=== PATIENT | female | born 1980 | race Caucasian/White ===

== ENCOUNTER 2019-05-19 09:54 | Emergency (ER) | payer OTHER, MEDICAID, SELFPAY ==
[2019-05-19 10:03] VITALS: BP 121/97; PULSE 94; RESP 12; TEMP 36.9; O2SAT 100
--- NOTE | 2019-05-19 10:25 | ED_ITS ---
HPI - Allergic Reaction General Chief complaint: Allergic Reaction Stated complaint: Bee Stings Time Seen by Provider: 05/19/19 10:03 Source: patient Mode of arrival: ambulatory Limitations: no limitations History of Present Illness HPI narrative: 38-year-old female here for evaluation of multiple bee stings. Patient states yesterday she was stung by multiple bees after walking over there Nest. Today she is here because she cannot stand the itching any longer. She has been trying Benadryl and topical steroid and anti-itch creams without much improvement. No problems breathing. No nausea vomiting. Has never had a reaction like this before. Related Data Home Medications Medication Instructions Recorded Confirmed lamotrigine [Lamictal] 150 mg PO BID #0 08/28/12 Previous Rx's Medication Instructions Recorded hydroxyzine HCl 25 mg PO TID-QID PRN #14 tab 05/19/19 prednisone 40 mg PO DAILY 2 Days #4 tab 05/19/19 Allergies Allergy/AdvReac Type Severity Reaction Status Date / Time SULFA (sulfonamide) Allergy Unknown Uncoded 12/25/17 12:03 Review of Systems Constitutional Constitutional: Denies fever(s) and Denies headache(s) ENT Ears, Nose, Mouth, and Throat: Denies headache(s) Cardiovascular Cardiovascular: Denies chest pain and Denies dyspnea Respiratory Respiratory: Denies dyspnea Gastrointestinal Gastrointestinal: Denies abdominal pain, Denies nausea and Denies vomiting Genitourinary Genitourinary: Denies dysuria Musculoskeletal Musculoskeletal: Denies myalgias and Denies arthralgias Integumentary/Breasts Skin/Breast: Reports pruritus, Reports lesions and Reports sores Comments: Bee stings Neurologic Neurologic: Denies behavioral changes and Denies headache(s) Psychiatric Psychiatric: Denies behavioral changes Hematologic/Lymphatic Hematologic/Lymphatic: Denies easy bleeding and Denies easy bruising [facility] Medical History Patient denies medical problems (Acute) Social History Smoking Status: Current every day smoker Social History Smoking Status: Current every day smoker Exam Initial Vital Signs Initial Vital Signs: Vital Signs Temperature 98.4 F 05/19/19 10:03 Pulse Rate 94 H 05/19/19 10:03 Respiratory Rate 12 05/19/19 10:03 Blood Pressure 121/97 H 05/19/19 10:03 Pulse Oximetry 100 05/19/19 10:03 Const General: cooperative Nutritional Appearance: average body habitus and well nourished Orientation: alert and awake HENCA Head: normal to inspection and normocephalic Resp Effort & Inspection: normal respiratory effort Auscultation: clear to auscultation bilaterally Cardio Rate: regular rate Rhythm: regular rhythm GI Inspection: non-distended Palpation: soft and No tender Skin Other: Multiple lesions on extremities both upper and lower consistent with bee stings with small surrounding erythema Neuro General: alert and awake Cognition: normal cognition Speech: speech normal Extrem General: normal to inspection and capillary refill normal Psych Appearance: grossly normal and well kempt Course Orders Ordered: Discontinued Medications Prednisone (Deltasone) 40 mg PO NOW ONE Stop: 05/19/19 10:27 Last Admin: 05/19/19 10:30 Dose: 40 mg Documented by: SCANAPO Vital Signs Vital signs: Vital Signs - 8 hr 05/19/19 10:03 Temperature 98.4 F Pulse Rate 94 H Respiratory Rate 12 Blood Pressure 121/97 H Pulse Oximetry 100 MDM - Allergic Reaction MDM Narrative Medical decision making narrative: Patient the fevers or chills. History and physical is not consistent with anaphylaxis. The redness over the areas are also not consistent with cellulitis. She will continue the Benadryl. Will send home with a short course of steroids. She was given her 1st dose here in the ER. She was given return precautions and follow-up instructions. She expressed understanding and agreement with plan. Discharge Plan Departure Patient Disposition: Home Clinical Impression: Bee sting reaction Qualifiers: Encounter type: initial encounter Injury intent: accidental or unintentional Qualified Code(s): T63.441A - Toxic effect of venom of bees, accidental (unintentional), initial encounter Instructions: DI for Insect Bites and Stings Activity Restrictions/Additional Instructions: You were given your 1st dose of prednisone here in the emergency department. Your 2nd dose will be tomorrow. You can continue the Benadryl. Take the hydroxyzine as needed as well. Continue the topical anti-itch creams. Return to the emergency department for any worsening symptoms Prescriptions: New prednisone 20 mg tablet 40 mg PO DAILY 2 Days Qty: 4 RF: 0 hydroxyzine HCl 25 mg tablet 25 mg PO TID-QID PRN (Reason: itching) Qty: 14 RF: 0 No Action lamotrigine [Lamictal] 150 MG tablet 150 mg PO BID Qty: 0 RF: 0
[2019-05-19] MEDS: predniSONE 20 MG TABLET 40 MG PO (10:30)
== END 2019-05-19 10:48 | disposition home or self-care (01) ==
PROVIDERS: Emergency Provider Emergency Medicine
DX: T63.441A Toxic effect of venom of bees, accidental (unintentional), initial encounter (principal)
CPT/HCPCS: 99282; 99283

== ENCOUNTER 2020-02-23 22:06 | Emergency (ER) | payer OTHER, MEDICAID, SELFPAY ==
[2020-02-23 22:14] VITALS: BP 122/76; PULSE 81; RESP 17; TEMP 36.5; O2SAT 100; BMI 19.8
[2020-02-23] MEDS: DOXYCYCLINE HYCLATE 100 MG TABLET PO (22:16)
[2020-02-23] MEDS: HYDROCODONE/ACET 5/325 PREPACK 1 BOTTLE MISC (22:37)
[2020-02-23] MEDS: LIDO 1%/SOD BICARB 8.4% (10ML) 10 ML SYRINGE INJ (22:38)
--- NOTE | 2020-02-23 22:43 | ED_ITS ---
HPI - Skin/Abscess/Foreign Bdy General Chief complaint: Skin/Abscess/Foreign Body Stated complaint: cyst under rt arm Time Seen by Provider: 02/23/20 22:06 Source: patient Mode of arrival: Family Vehicle Limitations: no limitations History of Present Illness HPI narrative: 39F daily smoker with noncontributory medical history presents with significant other and the chief complaint of a painful, swollen, red, boil under her right arm for the past few days. It started after shaving her armpits and has gradually worsened. She denies systemic findings such as fever, chills, nausea, or vomiting. She was seen by her PCP a few days ago and told to use warm compresses, which she has done, but her symptoms have worsened. She has no spontaneous drainage, but she did squeeze it at home. Her pain is worse with motion and improves with rest. MD complaint: abscess/boil Onset (ago): day(s) Tetanus up to date: yes Location: RUE Severity: moderate Quality: aching Pain Consistency: constant Relieving factors: immobilization Exacerbating factors: palpation and movement Context: none Associated symptoms: denies other symptoms Treatments prior to arrival: none Related Data Home Medications Medication Instructions Recorded Confirmed lamotrigine [Lamictal] 150 mg PO BID #0 08/28/12 Previous Rx's Medication Instructions Recorded hydroxyzine HCl 25 mg PO TID-QID PRN #14 tab 05/19/19 doxycycline hyclate 100 mg PO BID #20 tab 02/23/20 Allergies Allergy/AdvReac Type Severity Reaction Status Date / Time SULFA (sulfonamide) Allergy Unknown Uncoded 12/25/17 12:03 Review of Systems Constitutional Constitutional: Denies chills, Denies fatigue, Denies fever(s), Denies frequent falls, Denies lethargy and Denies weakness Eyes Eyes: Denies change in vision, Denies eye discharge, Denies irritation and Denies loss of vision ENT Ears, Nose, Mouth, and Throat: Denies change in voice, Denies dizziness, Denies neck pain, Denies sore throat and Denies throat swelling Cardiovascular Cardiovascular: Denies chest pain, Denies irregular heart rhythm, Denies lightheadedness, Denies palpitations, Denies dyspnea, Denies dyspnea on exertion and Denies orthopnea Respiratory Respiratory: Denies cough, Denies dyspnea, Denies dyspnea on exertion and Denies wheezing Gastrointestinal Gastrointestinal: Denies abdominal pain, Denies change in bowel habits, Denies diarrhea, Denies nausea and Denies vomiting Musculoskeletal Musculoskeletal: Denies neck pain and Denies numbness Integumentary/Breasts Skin/Breast: Denies pruritus, Reports erythema, Denies rash, Reports skin pain, Reports skin swelling and Denies wounds Neurologic Neurologic: Denies behavioral changes, Denies confusion, Denies dizziness, De nies frequent falls, Denies loss of vision, Denies numbness and Denies weakness Psychiatric Psychiatric: Denies anxiety, Denies behavioral changes, Denies confusion, Denies depression, Denies homicidal ideation and Denies suicidal ideation Endocrine Endocrine: Denies fatigue, Denies flushing and Denies palpitations Hematologic/Lymphatic Hematologic/Lymphatic: Denies easy bruising Allergic/Immunologic Allergic/Immunologic: Denies urticaria, Denies throat swelling and Denies wheezing Patient History Medical History Patient denies medical problems (Acute) Social History Smoking Status: Current every day smoker Smoking Status: Current every day smoker Exam Narrative Exam Narrative: GEN: AOx3 and in mild distress, tearful, nervous, and in pain. EYES: Pupils are equal, round, and reactive to light and accommodation. Extraoccular muscles are intact bilaterally. There is no subconjunctival hemorrhage or exudate. CHEST: Lungs are clear to auscultation bilaterally and free of wheezes, rales, or rhonchi. Heart rate is regular rhythm, there are no murmurs, clicks, rubs, or gallops. There is no chest wall tenderness. ABD: Abdomen is soft and nontender. There is no guarding or rebound. Bowel sounds are normal in all 4 quadrants. There is no mass or organomegaly. EXT: Full painless ROM of all extremities with no loss of sensation or strength. SKIN: 2x3cm fluctuant mass under right arm near axilla. Minimal surrounding erythema. No spontaneous drainage. No red streaks. Otherwise skin is warm, pink, and dry. No erythema or rash Initial Vital Signs Initial Vital Signs: Vital Signs Temperature 97.7 F 02/23/20 22:14 Pulse Rate 81 02/23/20 22:14 Respiratory Rate 17 06/09/20 22:14 Blood Pressure 122/76 02/23/20 22:14 Pulse Oximetry 100 02/23/20 22:14 Procedures Abscess I/D I&D #1: Site: upper extremity Side (if applicable): right Local Anesthetic: lidocaine 1% and with bicarb Amount of anesthesia used (mL): 6 Technique: incised with #11 blade Amount of fluid expressed (mL): 6 Irrigation: No Packing used?: none Complications: pain Course Orders Ordered: Discontinued Medications Hydrocodone Bitart/Acetaminophen (Vicodin 5/325 Prepack) 1 bottle MISC SEEINSTR ONE Stop: 02/23/20 22:33 Last Admin: 02/23/20 22:37 Dose: 1 bottle Documented by: DERRICK Doxycycline Hyclate (Vibramycin) 100 mg PO NOW ONE Stop: 02/23/20 22:12 Last Admin: 02/23/20 22:16 Dose: 100 mg Documented by: DERRICK Lidocaine/Sodium Bicarbonate (Buffered Lidocaine 10 Ml Syr) 10 ml INJ NOW ONE Stop: 02/23/20 22:12 Last Admin: 02/23/20 22:38 Dose: 10 ml Documented by: DERRICK Vital Signs Vital signs: Vital Signs - 8 hr 02/23/20 22:14 Temperature 97.7 F Pulse Rate 81 Respiratory Rate 17 Blood Pressure 122/76 Pulse Oximetry 100 Discharge Plan Departure Patient Disposition: Home Clinical Impression: Cutaneous abscess of axilla Qualifiers: Laterality: right Qualified Code(s): L02.411 - Cutaneous abscess of right axilla Discharge Date/Time: 02/23/20 22:40 Instructions: DI for Incision and Drainage of a Skin Abscess Activity Restrictions/Additional Instructions: *You have been diagnosed with [cutaneous abscess right axilla] *What to do: *Take medications as directed: Prescription sent to [facility] in [place] *Follow up with your primary care provider in 2-3 days, call for an appointment. Let them know you were seen in the Emergency Department and that we ask that you be seen in follow up *Return to ER if you should have any new, worsening or concerning symptoms, such as [fever, chills, persistent vomiting, significant swelling and redness of your arm, other bothersome symptoms] Prescriptions: New doxycycline hyclate 100 mg tablet 100 mg PO BID Qty: 20 RF: 0 No Action lamotrigine [Lamictal] 150 MG tablet 150 mg PO BID Qty: 0 RF: 0 hydroxyzine HCl 25 mg tablet 25 mg PO TID-QID PRN (Reason: itching) Qty: 14 RF: 0 Referrals: [facility] [Outside]
== END 2020-02-23 22:40 | disposition home or self-care (01) ==
PROVIDERS: Emergency Provider Emergency Medicine
DX: L02.411 Cutaneous abscess of right axilla (principal)
CPT/HCPCS: 10060; 99283

== ENCOUNTER 2021-11-22 06:12 | Emergency (ER) | payer OTHER, MEDICAID, SELFPAY ==
[2021-11-22 06:20] VITALS: BP 115/74; PULSE 115; RESP 16; TEMP 36.4; O2SAT 100; BMI 18.8
--- NOTE | 2021-11-22 06:21 | ED_ITS ---
HPI - Dental/Oral General Stated complaint: tooth abcess Time Seen by Provider: 11/22/21 06:13 History of Present Illness HPI Narrative: 41F daily smoker with extensive dental history presents with a chief complaint of right upper dental pain and facial swelling over the course of the night. She denies any fever or chills. She denies any difficulty swallowing or breathing. She states she did not even know she had a bad tooth and apparently 1 cracked. She has been working with a local dentist, but has yet to speak with them about this event. Related Data Home Medications Medication Instructions Recorded Confirmed lamotrigine 150 mg tablet 150 mg PO BID #0 08/28/12 (Lamictal) Previous Rx's Medication Instructions Recorded hydroxyzine HCl 25 mg tablet 25 mg PO TID-QID PRN #14 tab 05/19/19 doxycycline hyclate 100 mg tablet 100 mg PO BID #20 tab 02/23/20 amoxicillin 875 mg-potassium 1 tab PO BID #20 tab 11/22/21 clavulanate 125 mg tablet (Augmentin) ketorolac 10 mg tablet 10 mg PO Q6H PRN #14 tab 11/22/21 Allergies Allergy/AdvReac Type Severity Reaction Status Date / Time SULFA (sulfonamide) Allergy Unknown Uncoded 12/25/17 12:03 Review of Systems Review of Systems Narrative: GENERAL: Denies chills, fatigue, malaise, fever, sweats. HEENT: See HPI RESPIRATORY: Denies dyspnea, cough, wheezing, hemoptysis, sputum. CARDIOVASCULAR: Denies chest pain, palpitations, orthopnea, edema, GASTROINTESTINAL: Denies nausea, vomiting, abdominal pain, diarrhea, constipation, melena. : Denies dysuria, frequency, incontinence, hematuria, urinary retention. MUSCULOSKELETAL: denies weakness, joint pain, or bony pain SKIN: Denies rash, skin lesions, or other NEUROLOGIC: Denies weakness, headache, numbness, change in speech, confusion, seizures, incoordination. PSYCHIATRIC: No concerning psychosocial issues. 12 point review of systems is negative except for those stated above Patient History Medical History Patient denies medical problems Social History Smoking Status: Current every day smoker Smoking Status: Current every day smoker Exam Narrative Exam Narrative: GEN: AOx3 and in mild distress EYES: Pupils are equal, round, and reactive to light and accommodation. Extraoccular muscles are intact bilaterally. There is no subconjunctival hemorrhage or exudate. ENT: Right-sided facial swelling without overlying erythema or fluctuance. Intraoral exam demonstrates widespread poor dentition, no palpable, fluctuant mass noted. CHEST: Lungs are clear to auscultation bilaterally and free of wheezes, rales, or rhonchi. Heart rate is regular rhythm, there are no murmurs, clicks, rubs, or gallops. There is no chest wall tenderness. ABD: Abdomen is soft and nontender. There is no guarding or rebound. Bowel sounds are normal in all 4 quadrants. There is no mass or organomegaly. EXT: Full painless ROM of all extremities with no loss of sensation or strength. SKIN: Warm, pink, and dry. No erythema or rash Course Orders Ordered: Discontinued Medications Hydrocodone Bitart/Acetaminophen (Hydrocodone/Acet 5/325 Prepack) 1 bottle MISC SEEINSTR ONE Stop: 11/22/21 06:29 Amoxicillin/Clavulanate Potassium (Amoxicillin/Clav 875/125 Mg) 1 tab PO NOW ONE Stop: 11/22/21 06:23 Lidocaine/Sodium Bicarbonate (Lido 1%/Sod Bicarb 8.4% (10ml) 10 Ml Syringe) 10 ml INJ NOW ONE Stop: 11/22/21 06:23 Discharge Plan Departure Patient Disposition: Home Clinical Impression: Abscess, dental Instructions: DI for Tooth Decay Activity Restrictions/Additional Instructions: *You have been diagnosed with [dental abscess] *What to do: *Please continue to take your regular medications as directed. [x] New medication prescriptions sent to your pharmacy: [ [facility]] [ ] New medication written as a paper prescription [ ] No new medications given *Please follow up with your primary care provider in 2-3 days, call for an appointment. Let them know you were seen in the Emergency Department and that we ask that you be seen in follow up. We will electronically transmit a record of today's note if your PCP is in our system *If you do not have a primary care provider please contact the [facility] Resource line at [phone]. They will ask some questions about your medical history and help get you set up with a doctor in the community. *Return to Emergency Department if you should have any new, worsening or concerning symptoms, such as [fever greater than 101 F, shaking chills, worsening pain, persistent vomiting or other bothersome symptoms] Prescriptions: New ketorolac 10 mg tablet 10 mg PO Q6H PRN (Reason: pain) Qty: 14 0RF amoxicillin-pot clavulanate [Augmentin] 875-125 mg tablet 1 tab PO BID Qty: 20 0RF No Action lamotrigine [Lamictal] 150 MG tablet 150 mg PO BID Qty: 0 0RF hydroxyzine HCl 25 mg tablet 25 mg PO TID-QID PRN (Reason: itching) Qty: 14 0RF doxycycline hyclate 100 mg tablet 100 mg PO BID Qty: 20 0RF
[2021-11-22] MEDS: AMOXICILLIN/CLAV 875/125 MG 1 TAB PO (06:41)
[2021-11-22] MEDS: HYDROCODONE/ACET 5/325 PREPACK 1 BOTTLE MISC (06:41)
--- NOTE | 2021-11-22 06:45 | PC.NURSE ---
right sided facial swelling noted, pt states it started hurting severly this am and the pain has been unrelieved with excedrin
== END 2021-11-22 06:45 | disposition home or self-care (01) ==
PROVIDERS: Emergency Provider Emergency Medicine
DX: K04.7 Periapical abscess without sinus (principal)
CPT/HCPCS: 99283